=== PATIENT | male | born 1965 | race African-American/Black ===

== ENCOUNTER 2016-04-30 10:10 | Emergency (ER) | payer MEDICAID, OTHER ==
[~2016-04-30] VITALS: Ht 172.7 cm; Wt 116.0 kg
[~2016-04-30 10:10] MED LIST: ALBU6.7H INH; ASPI-1035 PO
[2016-04-30] MEDS ORDERED: METOPROLOL TARTRATE 25MG TABLET PO ONE (11:15)
[2016-04-30] MEDS ORDERED: CLONIDINE 0.2MG TABLET PO ONE (12:00)
[2016-04-30 12:13] VITALS: BP 130/73
== END 2016-04-30 12:42 | disposition home or self-care (01) ==
LOC: ER 10:52
DX: H00.12 Chalazion right lower eyelid (principal); I10 Essential (primary) hypertension; J45.909 Unspecified asthma, uncomplicated; I25.2 Old myocardial infarction
CPT/HCPCS: 93005; 99283

== ENCOUNTER 2016-07-16 11:51 | Emergency (ER) | payer MEDICAID ==
[~2016-07-16 11:51] MED LIST changes: -ASPI-1035 PO; +ASPI-1159 PO; +METO25TA6 PO
== END 2016-07-16 15:15 | disposition left against medical advice (07) ==
LOC: ER 14:43
DX: M25.512 Pain in left shoulder (principal); Z53.21 Procedure and treatment not carried out due to patient leaving prior to being seen by health care provider

== ENCOUNTER 2017-02-24 12:59 | Emergency (ER) | payer MEDICAID, OTHER | END 2017-02-24 13:54 | disposition left against medical advice (07) | LOC: ER 13:52 | DX: J11.1 Influenza due to unidentified influenza virus with other respiratory manifestations (principal); Z53.21 Procedure and treatment not carried out due to patient leaving prior to being seen by health care provider ==